=== PATIENT | female | born 1950 | race Caucasian/White ===

== ENCOUNTER 2017-06-20 13:24 | Outpatient (CLI) | payer OTHER ==
--- NOTE | 2017-06-20 15:11 | MMO ---
BILATERAL SCREENING MAMMOGRAM: Date: 06/20/17 HISTORY: 66-year-old female. Routine screening mammography. COMPARISON: 02/21/13, 03/21/14, 04/24/15, and 06/14/16. TECHNIQUE: CC and MLO views of both breasts are submitted for interpretation. This patient's mammogram was reviewed with the assistance of computer-aided detection. FINDINGS: The breasts are composed of heterogeneously dense fibroglandular tissue, which limits the sensitivity of mammography in the detection of underlying malignancy. Bilaterally, no suspicious dominant mass, architectural distortion, or suspicious calcification. There are bilateral benign-appearing calcifica tions. Stable mass in the left breast. IMPRESSION: BIRADS 2: Benign Finding(s) RECOMMENDATION: Annual mammogram. POS: [facility]
== END 2017-06-20 13:25 | disposition home or self-care (01) ==
LOC: SCSMAMMO 13:24
PROVIDERS: ATTEND Internal Medicine
DX: Z12.31 Encounter for screening mammogram for malignant neoplasm of breast (principal)
CPT/HCPCS: 77067; G0202

== ENCOUNTER 2018-08-30 15:31 | Outpatient (CLI) | payer MEDICARE ==
--- NOTE | 2018-08-30 16:47 | RAD ---
LEFT HUMERUS TWO VIEWS: Indication: Left arm pain. Comparison: None. FINDINGS: No acute fracture or subluxation is evident. Visualized left lung is clear. IMPRESSION: No acute abnormality. POS: [facility]
--- NOTE | 2018-08-30 16:48 | RAD ---
TWO VIEW LEFT SHOULDER: Indication: Pain. FINDINGS: There is no fracture or dislocation. No significant arthropathy. IMPRESSION: No acute osseous abnormality left shoulder. POS: [facility]
== END 2018-08-30 15:32 | disposition home or self-care (01) ==
LOC: SCSRAD 15:31
PROVIDERS: ATTEND Internal Medicine
DX: M25.512 Pain in left shoulder (principal); M79.622 Pain in left upper arm

== ENCOUNTER 2018-09-12 12:45 | Outpatient (CLI) | payer MEDICARE ==
--- NOTE | 2018-09-12 15:35 | MMO ---
Bilateral MAMMO Bilat Screen [facility]. CLINICAL HISTORY: Patient is 68 years old and is seen for screening. The patient has no family history of breast cancer. The patient has no personal history of cancer. VIEWS: The views performed were: bilateral craniocaudal and bilateral mediolateral oblique. FILMS COMPARED: The present examination has been compared to prior imaging studies performed at [facility] on 03/21/2014, 04/24/2015 and 06/14/2016. This study has been interpreted with the assistance of computer-aided detection. MAMMOGRAM FINDINGS: The breasts are heterogeneously dense, which could obscure a lesion on mammography. There is a stable round mass measuring 6 millimeters with circumscribed margins seen in the outer region of the left breast. IMPRESSION: STABLE MASS IN THE LEFT BREAST IS BENIGN. A ROUTINE FOLLOW-UP MAMMOGRAM IN 1 YEAR IS RECOMMENDED. ACR BI-RADS Category 2 - Benign finding MAMMOGRAPHY NOTE: 1. A negative mammogram report should not delay a biopsy if a dominant of clinically suspicious mass is present. 2. Approximately 10% to 15% of breast cancers are not detected by mammography. 3. Adenosis and dense breasts may obscure an underlying neoplasm.
== END 2018-09-12 12:46 | disposition home or self-care (01) ==
LOC: SCSMAMMO 12:45
PROVIDERS: ATTEND Internal Medicine
DX: Z12.31 Encounter for screening mammogram for malignant neoplasm of breast (principal); N63.20 Unspecified lump in the left breast, unspecified quadrant
CPT/HCPCS: 77067

== ENCOUNTER 2019-09-02 12:28 | Outpatient (CLI) | payer MEDICARE ==
--- NOTE | 2019-09-05 08:20 | EKG ---
Test Reason : Blood Pressure : / mmHG Vent. Rate : 080 BPM Atrial Rate : 080 BPM P-R Int : 150 ms QRS Dur : 088 ms QT Int : 372 ms P-R-T Axes : 053 034 046 degrees QTc Int : 429 ms Normal sinus rhythm Normal ECG No previous ECGs available Confirmed by DR. Laura DUNCAN ([id number]) on 09/05/2019 8:19:47 AM Referred By: [facility] Confirmed By:DR. Laura DUNCAN
== END 2019-09-02 12:29 | disposition home or self-care (01) ==
LOC: EKG 12:28
PROVIDERS: ATTEND Internal Medicine
DX: I10 Essential (primary) hypertension (principal); I47.9 Paroxysmal tachycardia, unspecified
CPT/HCPCS: 93005; 93010

== ENCOUNTER 2020-12-15 11:39 | Outpatient (CLI) | payer MEDICARE | END 2020-12-15 11:40 | disposition home or self-care (01) | LOC: BICMAMMO 11:39 | PROVIDERS: ATTEND Family Medicine | DX: Z12.31 Encounter for screening mammogram for malignant neoplasm of breast (principal) | CPT/HCPCS: 77063; 77067 ==

== ENCOUNTER 2022-04-19 16:43 | Emergency (ER) | payer OTHER, MEDICARE | END 2022-04-19 19:02 | disposition home or self-care (01) | LOC: ERS 16:43 | DX: S42.211A Unspecified displaced fracture of surgical neck of right humerus, initial encounter for closed fracture (principal); S00.33XA Contusion of nose, initial encounter; E11.9 Type 2 diabetes mellitus without complications; I10 Essential (primary) hypertension; F17.210 Nicotine dependence, cigarettes, uncomplicated; W01.0XXA Fall on same level from slipping, tripping and stumbling without subsequent striking against object, initial encounter ==

== ENCOUNTER 2022-06-12 14:06 | Emergency (ER) | payer MEDICARE ==
[2022-06-12] MEDS ORDERED: Ketorolac Tromethamine 30 MG/ML VIAL ONE (14:37)
== END 2022-06-12 15:37 | disposition home or self-care (01) ==
LOC: ERS 14:06
DX: M25.552 Pain in left hip (principal); E11.9 Type 2 diabetes mellitus without complications; I10 Essential (primary) hypertension; E78.5 Hyperlipidemia, unspecified; F17.210 Nicotine dependence, cigarettes, uncomplicated; Z79.899 Other long term (current) drug therapy; Z79.84 Long term (current) use of oral hypoglycemic drugs
CPT/HCPCS: 72170; 96372; J1885

== ENCOUNTER 2022-06-22 07:50 | Outpatient (CLI) | payer MEDICARE | END 2022-06-22 07:51 | disposition home or self-care (01) | LOC: TBSIIMAG 07:50 | PROVIDERS: ATTEND Nurse Practitioner Family | DX: M47.26 Other spondylosis with radiculopathy, lumbar region (principal); M48.061 Spinal stenosis, lumbar region without neurogenic claudication; M48.07 Spinal stenosis, lumbosacral region | CPT/HCPCS: 72148 ==

== ENCOUNTER 2022-09-15 09:19 | Outpatient (CLI) | payer MEDICARE ==
[2022-09-15 10:19] LABS: Hemoglobin 11.6 g/dL (12.0-15.5); Mean Corpuscular HGB CONC 30.4 g/dL (32.0-36.0); Mean Corpuscular Volume 75.6 fl (81.6-98.3); Mean Platelet Volume 10.6 fl (7.4-10.4); Platelet Count 339 10x3/uL (150-450); RBC Distribution Width 19.9 % (11.5-14.5); Red Blood Cell (RBC) Count 5.04 10x6/uL (3.90-5.03); White Blood Cell (WBC) Count 11.8 10x3/uL (3.5-10.5)
[2022-09-15 10:29] LABS: INR-International Normal Ratio 0.9; PTT 26.8 sec (22.0-33.0); Prothrombin Time 9.8 sec (9.5-12.1)
[2022-09-15 10:44] LABS: Anion Gap 14 mmol/L (10-20); BUN (Urea Nitrogen) 7 mg/dL (9.8-20.1); Calc. Creatinine Clearance 0 mL/min (70-130); Calcium 9.9 mg/dL (7.8-10.44); Carbon Dioxide 28 mmol/L (23-31); Chloride 99 mmol/L (98-107); Estimated GFR 95; Glucose 103 mg/dL (80-115); Potassium 4.1 mmol/L (3.5-5.1); Sodium 137 mmol/L (136-145)
== END 2022-09-15 09:20 | disposition home or self-care (01) ==
LOC: LABBT 09:19
PROVIDERS: ATTEND Surgery
DX: Z01.818 Encounter for other preprocedural examination (principal); M51.16 Intervertebral disc disorders with radiculopathy, lumbar region
CPT/HCPCS: 80048; 85027; 85610; 85730; 93005; 93010

== ENCOUNTER 2023-12-20 10:40 | Outpatient (CLI) | payer MEDICARE | END 2023-12-20 10:41 | disposition home or self-care (01) | LOC: BICMAMMO 10:40 | PROVIDERS: ATTEND Nurse Practitioner Family | DX: Z12.31 Encounter for screening mammogram for malignant neoplasm of breast (principal) | CPT/HCPCS: 77063; 77067 ==